=== PATIENT | female | born 1985 | race Hispanic/Latino ===

== ENCOUNTER 2022-09-14 19:55 | Emergency (ER) | payer MEDICAID, OTHER ==
[~2022-09-14] VITALS: Ht 162.6 cm; Wt 79.4 kg
[2022-09-14] MEDS ORDERED: IBUPROFEN 200 MG TAB ONE (21:20)
[2022-09-14] MEDS ORDERED: IBUPROFEN 600 MG TABLET PO ONE (21:30)
[2022-09-14 21:46] VITALS: BP 126/72
[2022-09-14 22:06] LABS: APPEARANCE,URINE CLEAR (CLEAR); BILIRUBIN,URINE NEGATIVE (NEGATIVE); COLOR,URINE LIGHT-YELLOW (YELLOW); GLUCOSE, URINE (UA) NEGATIVE (NEGATIVE); KETONES,URINE NEGATIVE (NEGATIVE); LEUKOCYTE ESTERASE ,URINE NEGATIVE Leu/uL (NEGATIVE); NITRATE,URINE NEGATIVE (NEGATIVE); OCCULT BLOOD,URINE LARGE (NEGATIVE); PH,URINE 5.5 (5.0-8.0); PROTEIN,URINE 10 mg/dL (NEGATIVE)
[2022-09-14 22:11] LABS: BACTERIA,URINE FEW /HPF (None Seen); HCG,QUALITATIVE URINE NEGATIVE (NEGATIVE); MUCUS,URINE RARE LPF (None Seen); SQUAMOUS EPITHELIAL CELL,UR RARE /HPF (0-2); YEAST,URINE BUDDING FEW /HPF (None Seen)
[2022-09-14] MEDS ORDERED: CYCL10TA16 PO (23:04)
[2022-09-14] MEDS ORDERED: NAPR500T6 PO (23:04)
== END 2022-09-14 23:11 | disposition home or self-care (01) ==
LOC: EDH 19:55
DX: M62.838 Other muscle spasm (principal); Z90.89 Acquired absence of other organs
CPT/HCPCS: 72125; 81001; 81025